=== PATIENT | female | born 1945 | race Caucasian/White ===

== ENCOUNTER → 2019-06-02 10:00 | Outpatient (BNVA) | payer MEDICARE, OTHER, SELFPAY | PROVIDERS: Family Provider Registered Nurse; PCP Registered Nurse; Visit Provider Urology | DX: N30.80 Other cystitis without hematuria (principal); N36.9 Urethral disorder, unspecified | CPT/HCPCS: 81001 ==

== ENCOUNTER 2019-06-12 11:05 | Day surgery (SDC) | payer MEDICARE, OTHER, SELFPAY ==
[2019-06-11 10:29] VITALS: BMI 33.5
--- NOTE | 2019-06-11 10:33 | ECG_ITS ---
Measurements Intervals [place] Rate: 63 P: 48 ND: 193 QRS: 11 QRSD: 83 T: 33 QT: 392 QTc: 403 SINUS RHYTHM POSSIBLE LEFT ATRIAL ENLARGEMENT [-0.1mV P WAVE IN V1/V2] No previous ECG available for comparison Electronically Signed On 06-11-2019 20:59:42 [employer]ED [employer] by Kaden Torres M.D. [id number]
--- NOTE | 2019-06-11 11:04 | ANES.PREANE2 ---
Pre-Anesthetic Assessment Pre-Anesthetic Assessment: Height/Weight: Height 1.6 m Weight 85.729 kg Preop Diagnosis: Suspicious urethral meatal lesion Proposed Procedure: Operation Date: 06/12/19 13:00 Proposed Procedures p BIOPSY OF URETERAL MEATAL LESION 81832/N36.9(Not Applicable) - Edward Regan MD Exam: Pre-Anes Outpt Exam: alert, oriented x 3, clear to auscultation bilaterally and regular rate & rhythm Airway: Submandibular: WNL Cervical ROM: WNL MP: 1 CV/HEM: CV/HEM: HTN Comments: rx'd 15y 2 blocks/2FOS without angina/WONG : Comments: urethral lesion GI: GI: GERD Neuropsych: Neuropsych: PARKER Anesthetic Plan: ASA status: 2 Anesthesia: General PFSH Anesthesia PFSH: Social History Smoking and tobacco status: never smoked Alcohol intake: never Adopted: No Caregiver/support person: No Lives independently: No Household members: spouse Marital status: Current occupational status: retired Data Anesthesia Cardiac Studies: No Data to Display
[2019-06-12] VITALS (7 sets, daily range): BP systolic 140–164; BP diastolic 66–85; PULSE 72–94; RESP 16–20; TEMP 36.4–37.2; O2SAT 95–100
[2019-06-12] MEDS: sodium chloride 0.9% 1,000 ML 30 ML IV (11:33)
[2019-06-12 12:54] LABS: Anion Gap 16.1 (5-19); Blood Urea Nitrogen 20 mg/dL (8-23); Calcium 9.6 mg/dL (8.5-10.5); Carbon Dioxide 25 mmol/L (22-29); Chloride 102 mmol/L (98-107); Creatinine Clr Calc Pharmacy 64.9898; Glucose 95 mg/dL (65-115); Osmolality Calculated 284 mOsm/kg (285-295); Potassium 4.1 mmol/L (3.5-5.1); Sodium 139 mmol/L (136-145)
--- NOTE | 2019-06-12 13:06 | PM.HPUD ---
H&P update H&P Update: DATE OF SURGERY/PROCEDURE: 06/12/19 DATE H&P PERFORMED: 06/02/19 CHANGES TO PREVIOUS DOCUMENTATION: none PREOP DIAGNOSIS: Suspicious urethral meatal lesion PRIMARY INDICATION FOR PROCEDURE: Obtain sample for assessment of risk PLANNED PROCEDURE: Operation Date: 06/12/19 13:00 Proposed Procedures p BIOPSY OF URETERAL MEATAL LESION 08022/N36.9(Not Applicable) - Edward Regan MD Full H&P Medications/Allergies: Current Medications: Current Medications Generic Name Dose Route Start Last Admin Trade Name Freq PRN Reason Stop Dose Admin Sodium Chloride 1,000 mls @ 30 ml s/hr 06/12/19 11:15 06/12/19 11:33 Sodium Chloride 0.9% IV 06/13/19 11:14 30 mls/hr .Q24H EFE Administration Perinent History: Medical/Surgical History: Medical History (Updated 06/02/19 @ 10:50 by Lydia Whaley APRN) Cystitis cystica Hypertension Urethral lesion Family History: Family History (Updated 06/02/19 @ 08:34 by BEBETO Fajardo) Other Cancer Dementia Hypertension Social History: Social History Smoking and tobacco status: never smoked Alcohol intake: never Adopted: No Caregiver/support person: No Lives independently: No Household members: spouse Marital status: Current occupational status: retired
[2019-06-12] MEDS: levofloxacin-dextrose 5 % 500 MG/100 ML PREMIX 100 MG IV (13:10)
--- NOTE | 2019-06-12 13:55 | P.OP_ITS ---
Operative Report Date of procedure: June 12, 2019 Pre-op Diagnosis: Suspicious urethral meatal lesion Post-op diagnosis: same Procedure Done: Excision of urethral meatal lesion Pathology: Urethral meatal lesion Surgeon: Shereen Anesthesia: General Estimated blood loss: Less than 3 cc Urine output: Not measured Complications: None Findings: Lesion confined to the distal urethra at the 6 o'clock position. More pale than typical urethral carbuncle. No obvious deep involvement. Excised without difficulty and good functional and cosmetic closure. Condition: stable Disposition: PACU Brief History: Initially evaluated in February 2019 for urethral lesion. No pain, no active bleeding. Cystoscopy at that time showed no obvious intravesical abnormality or proximal urethral involvement. She was treated initially conservatively with expectation that this was just a caruncle. On follow-up she continued to have the relatively abnormal appearance primarily related to the paleness of this structure as opposed to the typical caruncle. Based on the persistence of this appearance it was elected to proceed with excision. Procedure: After routine preoperative evaluation examination and obtaining of informed consent she was taken to the operating suite on 06/12/2019 where general anesthesia was administered without difficulty after appropriate timeout was performed, SCDs confirmed to be functioning, preoperative antibiotics administered, beta-sahil protocol confirmed. Prepped and draped in usual sterile fashion in dorsolithotomy position pain careful attention to avoiding pressure points. 21 [place] cystoscope with 30 degree lens introduced into the urethral meatus and advanced into the bladder videoscopy. Bladder was systematically examined and showed no gross abnormalities. The urethral lesion at the meatus did not appear to extend deep into the urethral lumen. An incision was made just below the lesion in a semicircular fashion to about the 4:00 and the 8 o'clock position. Stay sutures were placed in the corners of the incision. A transverse incision was made just inside the lesion connecting the 2 corners of the incision. The lesion was excised. Pinpoint electrocautery was utilized for meticulous hemostasis. The wound was closed with running 3-[address] [place] red rubber catheter was easily advanced into the bladder through the urethral meatus. She tolerated the procedure well without complications and was awakened in the operating room and returned to recovery room in stable condition. PLANS: 1. Call for pathology report if she is not heard from us within a week. 2. Recheck in about 2 months or sooner if any concerns or questions
== END 2019-06-12 15:40 | disposition home or self-care (01) ==
PROVIDERS: Anesthesiology; Family Provider Registered Nurse; PCP Registered Nurse; Visit Provider Urology
PROC: (CPT 52300; principal; 2019-06-12 13:00)
PROC: 0TJB8ZZ Inspection of Bladder, Via Natural or Artificial Opening Endoscopic (ICD-10-PCS; CPT 52000; 2019-06-12 13:00)
DX: N36.8 Other specified disorders of urethra (principal); I10 Essential (primary) hypertension; Z82.49 Family history of ischemic heart disease and other diseases of the circulatory system
CPT/HCPCS: 52300; 12345; 36415; 80048; 88305; 93005; J1956; J2405; J2704; J2710; J3010; J3490; J7030

== ENCOUNTER → 2019-10-15 16:23 | Outpatient (BNVA) | payer MEDICARE, OTHER, SELFPAY | PROVIDERS: Family Provider Registered Nurse; PCP Registered Nurse; Visit Provider Registered Nurse | DX: R51 Headache (principal) | CPT/HCPCS: 81000 ==

== ENCOUNTER → 2020-01-21 14:02 | Outpatient (BNVA) | payer MEDICARE, OTHER, SELFPAY | PROVIDERS: Family Provider Registered Nurse; PCP Registered Nurse; Visit Provider Urology | DX: N30.80 Other cystitis without hematuria (principal) | CPT/HCPCS: 81001 ==

== ENCOUNTER 2020-03-01 10:16 | Outpatient (CLI) | payer MEDICARE, OTHER, SELFPAY ==
--- NOTE | 2020-03-01 14:31 | XRR_ITS ---
PROCEDURE INFORMATION: Exam: XR Cervical Spine, 2 or 3 Views Exam date and time: 03/01/2020 2:31 PM Age: 74 years old Clinical indication: Patient HX: Neck pain x 3 weeks; Additional info: Cervical pain TECHNIQUE: Imaging protocol: XR of the cervical spine, 2 or 3 views. COMPARISON: CT neck w con* [id number] 03/28/2018 9:01 AM FINDINGS: Bones/joints: No acute fracture evident. 2 mm of mild anterolisthesis C3 on C4, C5 on C6 and C7 on T1, chronic. C4 through C7 degenerative disc disease with disc space narrowing and vertebral body overgrowth/spurring, chronic. Soft tissues: Unremarkable. XR/XR cervical spine 3V* [id number] IMPRESSION: 2 mm of mild anterolisthesis C3 on C4, C5 on C6 and C7 on T1, chronic. C4 through C7 degenerative disc disease with disc space narrowing and vertebral body overgrowth/spurring, chronic.
--- NOTE | 2020-03-01 14:31 | XRR_ITS ---
PROCEDURE INFORMATION: Exam: XR Right Shoulder Exam date and time: 03/01/2020 2:31 PM Age: 74 years old Clinical indication: Pain; Shoulder; Right; Additional info: Acute right shoulder pain x 2 weeks TECHNIQUE: Imaging protocol: XR Right shoulder. Views: 2 or more views. COMPARISON: No relevant prior studies available. FINDINGS: Bones/joints: No fracture or dislocation evident. Mild AC joint bony overgrowth, chronic. Soft tissues: Normal. XR/XR shoulder RT min 2V* [id number] IMPRESSION: Mild degenerative changes.
== END 2020-03-01 10:17 | disposition home or self-care (01) ==
LOC: RAD 10:22
PROVIDERS: PCP Registered Nurse; Visit Provider Registered Nurse
DX: M25.511 Pain in right shoulder (principal); M54.12 Radiculopathy, cervical region; M50.323 Other cervical disc degeneration at C6-C7 level
CPT/HCPCS: 72040; 73030

== ENCOUNTER → 2020-04-21 14:18 | Outpatient (BNVA) | payer MEDICARE, OTHER, SELFPAY | PROVIDERS: PCP Registered Nurse; Visit Provider Urology | DX: N30.80 Other cystitis without hematuria (principal) | CPT/HCPCS: 81003 ==

== ENCOUNTER → 2020-07-20 15:28 | Outpatient (BNVA) | payer MEDICARE, OTHER, SELFPAY | PROVIDERS: PCP Registered Nurse; Visit Provider Registered Nurse | DX: E04.9 Nontoxic goiter, unspecified (principal); E55.9 Vitamin D deficiency, unspecified; I10 Essential (primary) hypertension; E53.8 Deficiency of other specified B group vitamins; R60.0 Localized edema | CPT/HCPCS: 80053; 81000; 82306; 82607; 84443; 85025 ==

== ENCOUNTER 2020-08-02 11:44 | Outpatient (CLI) | payer MEDICARE, OTHER, SELFPAY ==
[2020-08-02 13:18] LABS: Erythrocyte Sedimentation Rate 15 mm/hr (0-15)
== END 2020-08-02 11:45 | disposition home or self-care (01) ==
PROVIDERS: PCP Registered Nurse; Visit Provider Specialist
DX: H92.03 Otalgia, bilateral (principal)
CPT/HCPCS: 36415; 85651

== ENCOUNTER 2020-08-06 15:04 | Outpatient (CLI) | payer MEDICARE, OTHER, SELFPAY ==
--- NOTE | 2020-08-06 15:14 | CT_ITS ---
WS: [id number] CT scan of the neck. Additional two-dimensional coronal and sagittal reconstruction was performed. 08/06/2020 Clinical Data: OTALGIA Comparison: CT neck, 03/28/2018. DLP: 2666.28 mGy-cm All CT scans at [facility] use at least one of these dose optimization techniques: automat ed exposure control; mA and/or kV adjustment per patient size (includes targeted exams where dose is matched to clinical indication); or iterative reconstruction. Findings: No lymphadenopathy is noted. The salivary glands are unremarkable. There is no prevertebral soft tiss ue swelling. The larynx is symmetric. The thyroid gland shows normal enhancement and there is enlarge ment of the isthmus with low density lesions unchanged.. The floor of the mouth and parapharyngeal sp aces are normal. The oral cavity is unremarkable. The carotid arteries bifurcate normally. There is minimal calcification at the right carotid bifurcat ion. The vertebral arteries are normal. 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 The lung apices show no abnormalities. The portions of the int racranial circulation which are seen demonstrate no abnormalities. No erosion of the skull or skull b ase is seen. CT/CT neck w con* [id number] Impression: 1. No change in multinodular goiter 2. Negative soft tissue neck.
[2020-08-06] MEDS: iohexol 300 mg/mL 100 mL Btl IV (15:36)
== END 2020-08-06 15:05 | disposition home or self-care (01) ==
PROVIDERS: PCP Registered Nurse; Visit Provider Specialist
DX: H92.03 Otalgia, bilateral (principal)
CPT/HCPCS: 70491; Q9967

== ENCOUNTER 2020-08-13 13:04 | Outpatient (CLI) | payer MEDICARE, OTHER, SELFPAY ==
--- NOTE | 2020-08-13 14:15 | USCV_ITS ---
Elise Salomon Age: 75 Gender: F : 1945 Exam Date: 08/13/2020 13:24 Ordering Phys: Taylor PhillipsP VP MARKETING Technologist: Fela Mckeon Exam Location: [facility] [place] Indication: LOCALIZED EDEMA BP: 145 / 59 HR: 70 Rhythm: Sinus Technical Quality: Adequate MEASUREMENTS (Male / Female) Normal Values 2D ECHO LV Diastolic Diameter PLAX 3.0 cm 4.2 - 5.9 / 3.9 - 5.3 cm LV Systolic Diameter PLAX 2.6 cm LV Chamber Size 3.1 cm IVS Diastolic Thickness 1.6 cm 0.6 - 1.0 / 0.6 - 0.9 cm IVS Systolic Thickness 1.6 cm LVPW Diastolic Thickness 1.8 cm 0.6 - 1.0 / 0.6 - 0.9 cm LVPW Systolic Thickness 1.8 cm RV Chamber Size 3.4 cm LVOT Diameter 2.0 cm LV Ejection Fraction 2D Teich 27.9 % LV Ejection Fraction MOD 2C 70.9 % LV Ejection Fraction 2C AL 71.6 % LA Diameter 4.4 cm LA Width 3.2 cm LA Height 4.0 cm RA Width 2.7 cm RA Height 4.0 cm Aorta at Sinotubular Diameter 2.3 cm M-MODE LV Diastolic Diameter MM 4.2 cm 4.2 - 5.9 / 3.9 - 5.3 cm LV Systolic Diameter MM 1.8 cm LV Ejection Fraction MM Teich 87.0 % IVS Diastolic Thickness MM 1.1 cm 0.6 - 1.0 / 0.6 - 0.9 cm IVS Systolic Thickness MM 1.3 cm LVPW Diastolic Thickness MM 1.2 cm 0.6 - 1.0 / 0.6 - 0.9 cm LVPW Systolic Thickness MM 1.6 cm Aortic Annulus Diameter 2.8 cm LA Ao Ratio MM 1.6 MV E Point Septal Separation 0.4 cm DOPPLER AV Peak Velocity 167.0 cm/s LVOT Peak Velocity 133.7 cm/s AV Area Cont Eq vti 2.5 cm squared AV Area Cont Eq pk 2.5 cm squared MV Area PHT 3.5 cm squared Mitral E to A Ratio 0.8 MV E' Velocity 43.5 cm/s Mitral E to MV E' Ratio 6.7 Mitral E to LV E' Lateral Ratio 7.3 Mitral E to LV E' Septal Ratio 6.3 TR Peak Velocity 273.2 cm/s TR Peak Gradient 29.9 mmHg TR Mean Velocity 232.5 cm/s TR Mean Gradient 24.1 mmHg TR Velocity Time Integral 105.6 cm TV Peak E Velocity 84.0 cm/s Right Atrial Pressure 3.0 mmHg Pulmonary Artery Systolic Pressu 32.9 mmHg PV Peak Velocity 118.0 cm/s RV Acceleration Time 0.1 s RV Ejection Time 0.4 s RV AcT/ET 0.3 FINDINGS Left Ventricle Normal left ventricular size, systolic function and mildly increased wall thickness, with no regional wall motion abnormalities. Left ventricular ejection fraction is estimated at 70 %. Normal diastolic function. Right Ventricle Normal right ventricular size and systolic function. Right ventricular systolic pressure 32.9 mmHg. Right Atrium Normal right atrial size. Left Atrium Normal left atrial size. Mitral Valve Structurally normal mitral valve. No mitral valve stenosis. No mitral valve regurgitation. Aortic Valve Structurally normal trileaflet aortic valve. No aortic valve stenosis. No aortic valve regurgitation. Tricuspid Valve Structurally normal tricuspid valve. Trace tricuspid valve regurgitation. Pulmonic Valve Structurally normal pulmonic valve. No pulmonary valve stenosis. Trace pulmonary valve regurgitation. Pericardium No pericardial effusion. Aorta Normal size aortic root and proximal ascending aorta. CONCLUSIONS 1. Normal left ventricular size, systolic function and mildly increased wall thickness, with no regional wall motion abnormalities. Left ventricular ejection fraction is estimated at 70 %. Normal diastolic function. 2. Normal right ventricular size and systolic function. 3. No significant valvular abnormality. 4. No prior similar studies to compare. Charu Maldonado MD (Electronically Signed) Final Date: 13 August 2020 21:10 S
== END 2020-08-13 13:05 | disposition home or self-care (01) ==
PROVIDERS: PCP Registered Nurse; Visit Provider Registered Nurse
DX: R60.0 Localized edema (principal)
CPT/HCPCS: 93306

== ENCOUNTER → 2021-04-20 14:58 | Outpatient (BNVA) | payer MEDICARE, OTHER, SELFPAY | PROVIDERS: PCP Registered Nurse; Visit Provider Urology | DX: N30.80 Other cystitis without hematuria (principal); N36.9 Urethral disorder, unspecified; N36.2 Urethral caruncle | CPT/HCPCS: 81003 ==

== ENCOUNTER → 2021-04-27 14:45 | Outpatient (BNVA) | payer MEDICARE, OTHER, SELFPAY | PROVIDERS: PCP Registered Nurse; Referring Provider Registered Nurse; Visit Provider Specialist | DX: M17.0 Bilateral primary osteoarthritis of knee (principal) | CPT/HCPCS: 73560; 73565 ==

== ENCOUNTER → 2021-05-19 12:11 | Outpatient (BNVA) | payer MEDICARE, SELFPAY | PROVIDERS: PCP Registered Nurse; Visit Provider Specialist | DX: M17.11 Unilateral primary osteoarthritis, right knee (principal); Z20.822 Contact with and (suspected) exposure to COVID-19 | CPT/HCPCS: 87635 ==

== ENCOUNTER 2021-05-24 18:35 | Observation (INO) | payer MEDICARE, SELFPAY ==
[2021-05-19 13:55] VITALS: BMI 33.3
--- NOTE | 2021-05-19 14:15 | ANES.PREANE2 ---
Pre-Anesthetic Assessment Pre-Anesthetic Assessment: Height/Weight: Height 1.65 m Weight 90.718 kg Preop Diagnosis: Primary arthritis right knee Proposed Procedure: Operation Date: 05/24/21 14:20 Proposed Procedures p Total Knee Arthroplasty 47651, m17.10(Right) - Lucrecia Mayes MD Familial anesthetic complications: None Social: Social History: No alcohol and No tobacco Exam: Pre-Anes Outpt Exam: alert, oriented x 3, clear to auscultation bilaterally and regular rate & rhythm Airway: Cervical ROM: WNL MP: 2 Dentition: Other (missing) CV/HEM: CV/HEM: HTN Metabolic: Metabolic: Thyroid (goiter) Anesthetic Plan: ASA status: 2 Anesthesia: Regional (specify below) (spinal + adductor) Risk of > 500 ml blood loss (7ml/kg in children): No PFSH Anesthesia PFSH: Medical History Bilateral lower extremity edema Cystitis cystica Goiter diffuse Hypertension Mild acid reflux Urethral lesion Surgical History History of carpal tunnel surgery History of melanoma excision History of tonsillectomy Family History Mother , AT AGE 95 Heart failure Father , AT AGE 95 Heart failure Other Cancer Dementia Hypertension Social History Alcohol intake: never Adopted: No Caregiver/support person: No Lives independently: No Household members: spouse Marital status: Current occupational status: retired History of recent travel: No Data Anesthesia Cardiac Studies: Echocardiogram Ultrasound 08/13/20
[2021-05-19 14:28] LABS: Add Urine Microscopic? NO; Charge for UA Resulting for Rev
[2021-05-19 14:43] LABS: Basophils # 0.1 10^3/uL (0.0-0.1); Basophils % 0.7 %; Eosinophils # 0.1 10^3/uL (0.0-0.8); Eosinophils % 1.3 %; Hematocrit 46.1 % (37.0-47.0); Hemoglobin 14.9 g/dL (11.5-15.3); Lymphocytes # 2.2 10^3/uL (0.8-4.8); Mean Corpuscular HGB Conc 32.3 g/dL (30.0-36.0); Mean Corpuscular Hemoglobin 28.3 pg (28.0-34.0); Mean Corpuscular Volume 87.5 fl (81-99); Mean Platelet Volume 10.6 fL (7.4-10.4); Monocytes # 0.5 10^3/uL (0.2-0.9); Monocytes % 7.4 %; Neutrophils # 4.36 10^3/uL (1.8-7.7); Neutrophils % 60.5 %; Nucleated Red Blood Cells % 0 %; Platelet Count 232 10^3/cmm (130-400); Red Blood Count 5.27 10^6/uL (4.1-5.3); Red Cell Distribution Width 14.5 % (12.1-15.1); White Blood Count 7.2 10^3/uL (4.0-10.0)
[2021-05-19 14:58] LABS: Alanine Aminotransferase 31 U/L (0-33); Albumin Level 4.4 g/dL (3.5-5.2); Alkaline Phosphatase 99 IU/L (35-105); Anion Gap 17.8 (5-19); Aspartate Amino Transferase 26 U/L (0-32); Blood Urea Nitrogen 20 mg/dL (8-23); Calcium 8.7 mg/dL (8.5-10.5); Carbon Dioxide 22 mmol/L (22-29); Chloride 103 mmol/L (98-107); Globulin 2.4 g/dL (1.3-4.6); Glucose 131 mg/dL (65-115); Osmolality Calculated 292 mOsm/kg (285-295); Potassium 3.8 mmol/L (3.5-5.1); Sodium 139 mmol/L (136-145); Total Bilirubin 0.3 mg/dL (0.15-1.2); Total Protein 6.8 g/dL (6.6-8.7)
[2021-05-19 14:58] LABS: Bilirubin Urine Neg (Negative); Blood Urine Neg (Negative); Glucose Urine UA Norm (Normal); Ketones Urine Negative (Negative); Leukocyte Esterase Urine Negative (Negative); Nitrate Urine Negative (Negative); Protein Urine Neg (Negative); Urine Appearance Clear (CLEAR); Urine Color Yellow (Yellow); Urobilinogen Urine Norm (Negative); pH Urine 5 (5-7)
[2021-05-24] VITALS (18 sets, daily range): BP systolic 125–200; BP diastolic 58–103; PULSE 63–77; RESP 16–20; TEMP 36.2–36.9; O2SAT 91–97; BMI 33.3
[2021-05-24] MEDS: sodium chloride 0.9% 1,000 ML 30 ML IV (11:10)
[2021-05-24] MEDS: CELEcoxib 200 mg Capsule 400 MG PO (11:11)
[2021-05-24] MEDS: acetaminophen 1,000 MG/100 ML PIGGYBACK 400 MG IV ×2 (11:11→21:25)
--- NOTE | 2021-05-24 12:25 | P.ANESUD_ITS ---
Pre-Anesthetic Update Pre-Anesthetic Assessment: Date of Surgery/Procedure: 05/24/21 Preop Rehana gnosis: Suspicious urethral meatal lesion Proposed Procedure: Operation Date: 05/24/21 14:00 Proposed Procedures p Total Knee Arthroplasty 22954, m17.10(Right) - Lucrecia Mayes MD Any changes to Pre-Anesthetic Assessment?: No Last Intake: Intake Last Liquid Date 05/23/21 Last Liquid Time 22:30 Last Solid Date 05/23/21 Last Solid Time 21:00 Vitals: Temperature 98.0 F 05/24/21 10:27 Temperature Source Temporal Artery S can 05/24/21 10:27 Pulse Rhythm 05/24/21 10:29 Pulse Strength 3+ Normal 05/24/21 10:29 Respiratory Rate 18 05/24/21 10:27 Blood Pressure 193/72 05/24/21 11:09 Blood Pressure Juanis n 112 05/24/21 11:09 Pulse Oximetry 95 05/24/21 10:27 Oxygen Delivery Me thod 05/24/21 10:29 Exam: Pre-Anes Outpt Exam: alert, oriented x 3, clear to auscultation bilaterally and regular rate & rhythm Other Pertinent Information: Other Pertinent Information: Plan SAB with adductor Cardiac Studies: Echocardiogram Ultrasound 08/13/20
[2021-05-24] MEDS: fentaNYL 50 mcg/mL INJ 2mL IVP (13:25)
[2021-05-24] MEDS: vancomycin 1,000 MG in sodium chloride 0.9% 250 ML 250 MG IV (13:52)
--- NOTE | 2021-05-24 14:22 | W.PM.OPSUD ---
Surgery/Procedure H&P Update DATE OF PROCEDURE: May 24, 2021 DATE H&P PERFORMED: 04/27/21 H&P UPDATE INFORMATION: I have reviewed H&P completed within last 30 days, I have examined patient prior to procedure, No changes to prior documentation and [place] [facility] [place] date indicated CHANGES TO PREVIOUS DOCUMENTATION: None PREOP DIAGNOSIS: Right Knee osteoarthritis with Valgus deformity PLANNED PROCEDURE: Operation Date: 05/24/21 14:00 Proposed Procedures p Total Knee Arthroplasty 72197, m17.10(Right) - Lucrecia Mayes MD Related Problem List Diagnoses (1) Primary osteoarthritis of right knee: (2) Valgus deformity, not elsewhere classified, right knee:
--- NOTE | 2021-05-24 14:58 | ANES.PROC ---
Anesthesia Procedures Procedure/Date: 05/24/21 Right adductor nerve block Nerve Block ^: Nerve Block 1: Main Anesthesia: spinal anesthesia block Time Out Performed: Yes Consent: requested by attending/covering physician, from patient, risks and benefits reviewed and patient agrees to proceed Nerve block location: adductor canal (right) Anesthesia monitors applied: pulse oximetry, EKG, BP cuff and oxygen Nerve block position: supine Anesthetic Used: ropivicaine 0.5% Amount of anesthesia used (mL): 20 Ultrasound used to: recognize landmarks Nerve Stimulator Used?: No Interscalene/Femoral BLK: 4 stimuplex 21 g needle used for position and inplane approach and visualize local anesthetic spread Injection: neg aspiration of heme Patient Tolerated Procedure: well Complications: none
[2021-05-24] MEDS: vancomycin 1,000 MG SDV 1000 MG IRRIGATION (15:18)
--- NOTE | 2021-05-24 18:13 | XR_ITS ---
WS: [id number] Right knee, AP and lateral views, 05/24/2021 Clinical Data: Status post total knee arthroplasty Comparison: Bilateral knees, 04/27/2021. Findings: A right knee arthroplasty is in good position. No loosening is seen. There is air in the joint space from the recent surgery. There are no fractures or dislocations. Anterior subcutaneous surgical stapl es are present. XR/XR knee RT 3V* [id number] Impression: Arthroplasty of the right knee
--- NOTE | 2021-05-24 18:14 | ANE.PACU2 ---
Inpatient post-anesthesia follow up: Airway intact: Yes Vital signs: Temperature 98.0 F Pulse Rate Respiratory Rate 18 Blood Pressure 193/72 Pulse Oximetry 97 Oxygen Delivery Me thod Room Air Oxygen Flow Rate Fraction of Inspir ed Oxygen Hydration adequate: Yes Nausea and vomiting: No Pain level: 2 Mental status: Baseline
[2021-05-24] MEDS: meperidine 50 mg/mL INJ 12.5 MG IVP (18:15)
--- NOTE | 2021-05-24 18:19 | PM.OP ---
Operative Report Date of procedure: May 24, 2021 Pre-op diagnosis: Right Knee osteoarthritis with Valgus deformity Post-op diagnosis: same Post-op findings: Severe osteoarthritis with large osteophytes circumferentially about the femur and patella. Procedure done: Right total knee arthroplasty Implants: The [place] total knee system with a size 4 triathlon beaded posterior stabilized femur right, a triathlon titanium tibial component size 5 beaded, a triathlon X3 posterior stabilized tibial bearing insert size 5 X 12 mm and a beaded triathlon titanium asymmetric patella size 32 x 10 mm Specimens removed/disposition: Bone, disposed of Pathology: none sent Surgeon: Lucrecia Mayes Teacher Of The Deaf/Hard Of Hearing: [facility] operating room technicians Anesthesia: MAC (Spinal with preoperative regional block, ASA 2) Estimated blood loss (mL): 50 Tourniquet time (min): 120 At 250 mmHg IV fluids (mL): 1,200 Urine output (mL): 300 Complications: None Findings: Significant valgus deformity with flexion contracture. Large osteophytes circumferentially about the femur. Osteopenic bone. Circumferential peripatellar osteophytes. Condition: stable Disposition: PACU (Then to floor for postoperative rehabilitation and pain management) Brief History: This 76-year-old woman presented to my office with complaints of severe right knee pain which caused her significant difficulties in her activities of daily living. Conservative measures were not successful, and additionally, she had a very severe valgus deformity with significant flexion contracture. After discussion, the plan was made to proceed with right total knee arthroplasty. Questions were answered and consents were signed preoperatively. Procedure: The patient was brought to the operating theater, and after undergoing adequate spinal anesthesia with MAC and with supplemental regional block placed while in the preop area, ASA 2, the right lower extremity was prepped with Dura-Prep and draped in usual fashion following placement of a tourniquet high on the leg. The leg was then draped free. Following prepping and draping, the leg was exsanguinated, and the tourniquet was elevated to 250 mm Hg for a total tourniquet time of 120 minutes.? Prior to elevation of the tourniquet, but following exposure of the site of surgery, a surgical pause was performed. At the time of the surgical pause, we confirmed the site and side of surgery. Additionally, we confirmed the appropriate and timely administration of preoperative antibiotics, vancomycin 1 g and Transexemic acid 1 g. The availability of equipment was confirmed, and the patient's identity was verbalized as well. Following the surgical pause, an incision was made centering over the patella continuing proximally and distally as necessary to allow access to the knee joint. We had to stick tie several large varicose veins during the process of the incision. Dissection continued through skin and soft tissues using a scalpel. Hemostasis was obtained using electrocautery. The skin incision was followed by a median parapatellar arthrotomy. The leg was extended and the patella was everted. Following this, the leg was returned to flexed position.? The distal femur was exposed, and there was such large osteophytes, these had to be removed prior to addressing any further surgical intervention. There were large osteophytes circumferentially about the patella. There were also large osteophytes along both the medial and lateral femur as well as anteriorly in the area of the notch. A drill hole was made in this for placement of the distal femoral jig. The distal femoral jig was set at 5? of valgus. The distal femoral cutting block was then placed in appropriate position, and an radha wing was used to confirm an appropriate amount of distal femur would be resected.? The distal femoral resection was accomplished with 8 mm of bone being resected distally. After the distal femoral resection had been accomplished, the femur was measured and it measured a size 4 anterior posterior direction as well as the medial lateral direction.? A size 4 femoral cutting block was placed in position, and we were then able to accomplish the anterior, posterior and chamfer cuts. This jig was then removed, and the notch guide was placed in position. With the notch guide in appropriate position, the notch was excised including resection of the anterior and posterior cruciate ligaments. This notch was to allow for the posterior stabilized femoral component. At this point, the femur was prepared and attention was directed to the proximal tibia. The posterior knee retractor was placed along with medial and lateral retractors.? Further resection of the menisci was accomplished as we had better visualization. A complete meniscectomy was performed both medially and laterally with care being taken to protect the popliteus. Retractors were then placed so that the proximal tibia was well visualized. A drill hole was then made in the tibia for placement of the intramedullary guide. This guide was placed so that approximately 2 mm of bone would be resected from the lateral tibial plateau, and this resulted in 8 mm resected from the lateral tibial plateau. The intramedullary guide was utilized supplemented with an extramedullary guide to assure appropriate alignment for the proximal tibial resection. The proximal tibial jig was then evaluated, pinned in position, and the proximal tibial resection was accomplished without difficulty. The jig was removed, and the proximal tibia was measured. It measured a size 5. We then attempted a trial reduction with a size 5 by 11 mm insert.? With this, the femoral component was placed in position for the trial reduction, and the knee was placed through range of motion. Further lateral release was accomplished, and we were then able to place a size 5 x 13 mm insert which lacked slight flexion but gave stability. Therefore, we chose to place a size 5 x 12 mm insert. There was excellent stability with excellent varus-valgus alignment with appropriate patellar tracking. Extension was noted to be full as well.? This was felt to be the appropriate size insert. There was full extension and flexion without lift off and the rotation of the tibia was marked. Alignment was checked from the hip to the ankle, and this was noted to be appropriate as well. Attention was then directed to the patella. The patella was measured with a caliper.? We resected sufficient patella to leave approximately 15 mm of patella remaining.? Measurements of the patella then indicated that a size asymmetric 32 mm x 10 mm was the appropriate patellar size. We then placed the jig to drill for the 3 pegs of the press-fit patella, and these drill holes were made without incident. A trial patella was then placed, and the knee was placed through range of motion. The patella was noted to track nicely without evidence of subluxation.? The femur was prepared for a press-fit femur by drilling 2 holes for the femoral pegs.? All trial components were subsequently removed. The tibial tray was then pinned into position, and we broached the tibia for the stem of the tibial component.? Subsequently, 4 drill holes were made for placement of the press-fit tibia.? This was accomplished without difficulty. Care was taken to assure appropriate rotation of the tibia as well as appropriate position on the proximal tibia. The tibial tray was completely seated on the proximal tibia. Following broaching, the tibial guide was removed, and all surfaces were copiously irrigated. The surfaces were then dried and a bone plug was placed into the distal femur.? Exparel was also injected at this point. The Tritanium tibia was impacted into position.? The beaded femur was then impacted into position in a cementless fashion. The tibial insert was placed. The patella was pressed into position with a patellar clamp.? The knee was irrigated with 20 mL of Betadine and 500 mL of normal saline, and this was allowed to remain in the knee for 3-4 minutes.? The knee was then copiously irrigated and suctioned dry.? Attention was then directed to closure.? Closure was accomplished with 0 Vicryl in the fascial tissues.? Following this, a 2-0 Monocryl was used in the subcutaneous tissues, and the skin was closed with skin raul. A sterile dressing was then placed consisting of dermabond Prineo, OpSite, ABD, sterile soft roll, and an Pierre wrap. The patient was returned the Recovery Room in a satisfactory condition.? X-rays were obtained there.? The patient will be discharged to the floor for postoperative rehabilitation and pain management. Related Problem List Diagnoses (1) Primary osteoarthritis of right knee:
--- NOTE | 2021-05-24 19:39 | PC.NURSE ---
ADMIT NOTE Pt received from OR via bed at 1925. Alert and oriented. Denies pain at present. Dressing/casper wrap to RLE. Ice pack in place. Is able to move toes and good cap refill present. Can feel touch to feet. Thirsty and given some water to drink. at bedside
[2021-05-24] MEDS: oxyCODONE 5 mg IR Tab/Cap PO (21:25)
[2021-05-24] MEDS: chlorhexidine gluconate 0.12% Btl 473 mL 30 ML MUCOUS MEM (21:28)
[2021-05-24] MEDS: ondansetron 2 mg/ML SDV 2 mL 4 MG IVP (22:08)
[2021-05-24] MEDS: CELEcoxib 200 mg Capsule PO (23:57)
[2021-05-25] VITALS (12 sets, daily range): BP systolic 128–154; BP diastolic 63–77; PULSE 71–81; RESP 16–18; TEMP 36.3–37.7; O2SAT 90–97
[2021-05-25] MEDS: oxyCODONE 5 mg IR Tab/Cap PO ×5 (02:37→20:40)
[2021-05-25] MEDS: acetaminophen 1,000 MG/100 ML PIGGYBACK 400 MG IV ×2 (04:32→11:35)
[2021-05-25 05:29] LABS: Basophils % 0.4 %; Eosinophils % 0.1 %; Hematocrit 38.4 % (37.0-47.0); Hemoglobin 12.4 g/dL (11.5-15.3); Lymphocytes # 0.6 10^3/uL (0.8-4.8); Lymphocytes % 7.1 %; Mean Corpuscular HGB Conc 32.3 g/dL (30.0-36.0); Mean Corpuscular Hemoglobin 28.7 pg (28.0-34.0); Mean Corpuscular Volume 88.9 fl (81-99); Mean Platelet Volume 10.8 fL (7.4-10.4); Monocytes # 0.7 10^3/uL (0.2-0.9); Monocytes % 8.4 %; Neutrophils # 6.93 10^3/uL (1.8-7.7); Neutrophils % 83.6 %; Nucleated Red Blood Cells % 0 %; Platelet Count 178 10^3/cmm (130-400); Red Blood Count 4.32 10^6/uL (4.1-5.3); Red Cell Distribution Width 14.6 % (12.1-15.1); White Blood Count 8.3 10^3/uL (4.0-10.0)
[2021-05-25 05:51] LABS: Anion Gap 14.5 (5-19); Blood Urea Nitrogen 18 mg/dL (8-23); Calcium 7.8 mg/dL (8.5-10.5); Carbon Dioxide 22 mmol/L (22-29); Chloride 105 mmol/L (98-107); Glucose 100 mg/dL (65-115); Osmolality Calculated 286 mOsm/kg (285-295); Potassium 4.5 mmol/L (3.5-5.1); Sodium 137 mmol/L (136-145)
--- NOTE | 2021-05-25 06:48 | PC.NURSE ---
SHIFT SUMMARY Has not slept much. Says she has just napped off & on. Medicated X3 with po Oxycodone as well as scheduled IV Tylenol for right knee pain. Dressing/casper wrap to right leg. Neurovascular check WNL. Does say she still has some numbness in right foot Toes warm with good cap refill present and moves foot well. Had c/o some nausea X1 and received IV Zofran. No emesis and has been drinking well. Wilian hose and foot pump in place to
[2021-05-25] MEDS: calcium carbonate 500 mg Chew Tablet 1000 MG PO ×2 (09:33→16:44)
[2021-05-25] MEDS: iron polysaccharide complex 150 mg Capsule PO ×2 (09:33→16:52)
[2021-05-25] MEDS: cholecalciferol (vitamin D3) 1,000 unit Tablet 1000 UNIT PO (09:33)
[2021-05-25] MEDS: multivitamin therapeutic Tablet 1 TAB PO (09:33)
[2021-05-25] MEDS: aspirin 325 mg EC Tablet PO (09:34)
[2021-05-25] MEDS: potassium chloride ER 10 mEq Tablet PO (09:34)
[2021-05-25] MEDS: pantoprazole DR 40 mg Tablet PO (09:34)
[2021-05-25] MEDS: FUROsemide 20 mg Tablet 30 MG PO (09:34)
[2021-05-25] MEDS: losartan 50 mg Tablet PO (09:34)
[2021-05-25] MEDS: polyethylene glycol 3350 Pkt 17 gm PO (09:35)
--- NOTE | 2021-05-25 10:09 | PC.CHAP ---
Pastoral Care Encounter/Spiritual Assessment Type of Contact [] Declined top executive visit [] Patient/Family/Request visit [] Outpatient visit [] Follow-up visit [] Physician referral [] Code/Alert [x] Routine visit [] Staff referral [] Actively dying [] Patient sleeping [] Family support [] [] Out of room [] Palliative care [] [] Receiving care in room [] Pre-surgical visit [] Trauma [] Long length of stay [] ICU visit [] Other: Relational/Emotional Strength [x] Patient feels connected with others/family/visitors/staff [] Distress [] Loneliness/isolation [] Abandonment Spirituality of Patient [x] Person of Laurel [x] Attends Mu-Ism of their Laurel [x] Believes in Prayer [] Reads Bible or Tenriism materials [] There are Spiritual issues to be addressed Powerhouse Mechanic Apprentice Interventions [x] Prayer [x] Active listening [x] Non-anxious presence [x] Spiritual/emotional support [] Crisis/trauma care [] Spiritual counseling [] Bereavement support [] Provided bereavement packet [] Provided Bible/devotional materials [] Provided toy/stuffed animal, coloring book to patient or family member [] Provided Communion [] Anointing/[place] [] Salvation [x] Completed spiritual assessment [] Other: Impact on Illness or Injury [] Angry [] Fearful [] Anxious [] Often cries [] Exhaustion [] Unable to work [] Unable to attend episcopal [] Unable to walk/stand [] Unable to read [] Unable to drive [] Unable to eat/drink [] Unable to sleep [] Unable to be with family [] Patient intubated [] Other: Summary patient having some pain Time spent with patient 10 min
[2021-05-25] MEDS: CELEcoxib 200 mg Capsule PO ×2 (11:35→23:24)
--- NOTE | 2021-05-25 13:25 | PM.PN ---
Subjective Subjective: Interval history: The patient had severe flexion contracture and valgus deformity preoperatively. Secondary to an increased level of pain with the releases required to repair her knee, she is having difficulty with physical therapy and difficulty with ambulating. The patient will require ongoing hospitalization and work with physical therapy to address this issue. Medications: Reviewed: Yes Vitals/I&O/Wt Last Vital Signs Temp 97.8 F 05/25/21 15:58 Pulse 71 05/25/21 15:58 Resp 16 05/25/21 16:00 BP 152/77 05/25/21 15:58 Pulse Ox 95 05/25/21 16:00 05/25/21 05/25/21 05/25/21 06:59 14:59 22:59 Intake Total 1560 / 2340 350 / 350 Output Total 900 / 1550 Balance 660 / 790 350 / 350 Weight last 48 hrs Weight 200 lb Physical Exam Const: COMMON NORMALS: no acute distress, average body habitus, patient oriented x3 and alert GENERAL APPEARANCE: cooperative and comfortable ORIENTATION/CONSCIOUSNESS: Yes awake HENMT: COMMON NORMALS: normocephalic and atraumatic HEAD & SCALP: normocephalic and atraumatic Eye: GENERAL EYE: appearance normal, both eyes and all related structures Chest: COMMONS NORMALS: normal inspection of the chest Resp: COMMON NORMALS: normal respiratory effort EFFORT & INSPECTION: Yes able to speak in complete sentences and Yes symmetric chest movement Extremity: RIGHT LOWER EXTREMITY: Yes knee joint (Pierre wrap is removed. No significant swelling.) Right knee: Yes inspection (OpSite dressing is dry and intact.), Yes palpation (Tenderness to palpation.), Yes ROM (Patient is uncomfortable with range of motion, but working with therapy.) and Yes neurovascular exam (Intact distally.) Neuro: COMMON NORMALS: patient oriented x3 SENSORIUM/ORIENTATION: Yes alert Psych: COMMON NORMALS: mental status grossly normal APPEARANCE: Yes grossly normal ATTITUDE: Yes calm and Yes engaged ATTENTION/CONCENTRATION: Yes attention grossly intact Skin: COMMON NORMALS: no rashes or lesions noted GENERAL SKIN EXAM: no rashes or lesions noted Urinary Catheter Management: Cardenas: Cath Placed During This Visit: yes, but has since been removed by the nurse Reason for Continuing Indwelling Catheter: Decision to DC Catheter Urinary Catheter Date of Insertion: 05/24/21 Urinary Catheter Time of Insertion: 15:10 Date Urinary Catheter Removed: 05/25/21 Time Urinary Catheter Discontinued: 09:45 Data : 05/25/21 04:13 05/25/21 04:13 A&P Assessment and plan (1) Status post total right knee replacement not using cement: Patient underwent right total knee arthroplasty yesterday. Preoperatively, she had significant valgus deformity and flexion contracture. This was not correctable even under anesthetic. Extensive release was required, and the patient has significant pain associated with these releases. She is requiring ongoing hospitalization for physical therapy and for ambulation to allow her to be safe at home. Currently, she has pain limitations not allowing her to aggressively perform with physical therapy. There were no complications from the surgical procedure, however. Status: Acute (2) Primary osteoarthritis of right knee: Status: Acute (3) Valgus deformity, not elsewhere classified, right knee: Status: Acute Attestations Medical Necessity Statement*: Patient requires ongoing hospitalization secondary to inability to ambulate independently and safely following complex right total knee arthroplasty. 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
[2021-05-25] MEDS: chlorhexidine gluconate 0.12% Btl 473 mL 30 ML MUCOUS MEM ×3 (13:58→20:39)
[2021-05-25] MEDS: vancomycin 1,000 MG in sodium chloride 0.9% 250 ML 250 MG IV (13:58)
[2021-05-25] MEDS: mupirocin oint 22 gm 1 APPLIC NASAL (16:47)
[2021-05-25] MEDS: sennosides-docusate Tablet 2 TAB PO (16:52)
[2021-05-25] MEDS: acetaminophen 500 mg Tablet 1000 MG PO (17:51)
[2021-05-26] VITALS (7 sets, daily range): BP systolic 120–159; BP diastolic 71–76; PULSE 71–82; RESP 17–18; TEMP 36.1–37.3; O2SAT 90–96
[2021-05-26] MEDS: acetaminophen 500 mg Tablet 1000 MG PO ×2 (04:35→13:43)
--- NOTE | 2021-05-26 06:00 | PC.NURSE ---
SHIFT SUMMARY Has done very well tonight. Took po pain med at HS and only po Tylenol rest of night. Wants to take something before therapy today. Getting up with one assist and walker. Right knee incision with telfa dressing intact. Ice packs to knee. Edema/bruising to right leg. Bruising is primarily at knee anteriorly and posteriorly. Says she should be going home today
[2021-05-26] MEDS: cholecalciferol (vitamin D3) 1,000 unit Tablet 1000 UNIT PO (08:39)
[2021-05-26] MEDS: potassium chloride ER 10 mEq Tablet PO (08:39)
[2021-05-26] MEDS: aspirin 325 mg EC Tablet PO (08:39)
[2021-05-26] MEDS: losartan 50 mg Tablet PO (08:39)
[2021-05-26] MEDS: oxyCODONE 5 mg IR Tab/Cap PO (08:39)
[2021-05-26] MEDS: calcium carbonate 500 mg Chew Tablet 1000 MG PO (08:39)
[2021-05-26] MEDS: sennosides-docusate Tablet 2 TAB PO (08:39)
[2021-05-26] MEDS: pantoprazole DR 40 mg Tablet PO (08:39)
[2021-05-26] MEDS: multivitamin therapeutic Tablet 1 TAB PO (08:39)
[2021-05-26] MEDS: iron polysaccharide complex 150 mg Capsule PO (08:39)
[2021-05-26] MEDS: FUROsemide 20 mg Tablet 30 MG PO (08:40)
[2021-05-26] MEDS: fluticasone nasal spray 16gm Btl 1 SPRAY INTRANASAL (08:42)
[2021-05-26] MEDS: mupirocin oint 22 gm 1 APPLIC NASAL (08:47)
[2021-05-26] MEDS: chlorhexidine gluconate 0.12% Btl 473 mL 30 ML MUCOUS MEM ×2 (08:47→13:45)
[2021-05-26] MEDS: polyethylene glycol 3350 Pkt 17 gm PO (08:48)
--- NOTE | 2021-05-26 10:29 | PC.OT ---
OT NOTE: OT TREATMENT ATTEMPTED; PATIENT JUST FINISHING WITH P.T. PATIENT REPORTS THAT SHE WAS ABLE TO DON UNDERWEAR WITH MODIFIED INDEPENDENCE TODAY AND IS ABLE TO DEMONSTRATE REACHING TO VOLAR SURFACE OF FOOT. REPORTS THAT SHE DRESSED THE RIGHT LE FIRST. REPORTS THAT SHE HAS BEEN ABLE TO TOILET SELF USING BSC WITH INDEPENDENCE. PATIENT DECLINES ADLS AT THIS TIME. MAY DISCHARGE LATER TODAY. WILL ATTEMPT TREATMENT AGAIN TOMORROW IF PATIENT STILL ADMITTED TO DETERMINE FURTHER SKILLED OT NEEDS.
--- NOTE | 2021-05-26 13:17 | PC.CHAP ---
Pastoral Care Encounter/Spiritual Assessment Type of Contact [] Declined seo expert visit [] Patient/Family/Request visit [] Outpatient visit [] Follow-up visit [] Physician referral [] Code/Alert [x] Routine visit [] Staff referral [] Actively dying [] Patient sleeping [] Family support [] [] Out of room [] Palliative care [] [x] Receiving care in room [] Pre-surgical visit [] Trauma [] Long length of stay [] ICU visit [] Other: Relational/Emotional Strength [x] Patient feels connected with others/family/visitors/staff [] Distress [] Loneliness/isolation [] Abandonment Spirituality of Patient [x] Person of Laurel [] Attends Mandaen of their [place] [x] Believes in Prayer [] Reads Bible or Jew materials [] There are Spiritual issues to be addressed Tile Professional Interventions [x] Prayer [x] Active listening [x] Non-anxious presence [x] Spiritual/emotional support [] Crisis/trauma care [x] Spiritual counseling [] Bereavement support [] Provided bereavement packet [] Provided Bible/devotional materials [] Provided toy/stuffed animal, coloring book to patient or family member [] Provided Communion [] Anointing/[place] [] Salvation [x] Completed spiritual assessment [] Other: Impact on Illness or Injury [] Angry [] Fearful [x] Anxious [] Often cries [] Exhaustion [] Unable to work [] Unable to attend yarsanism [] Unable to walk/stand [] Unable to read [] Unable to drive [] Unable to eat/drink [] Unable to sleep [] Unable to be with family [] Patient intubated [] Other: Summary had surgery on back in some pain will be recover at home has a good attitude and is going home Time spent with patient 5 mins
[2021-05-26] MEDS: CELEcoxib 200 mg Capsule PO (13:44)
--- NOTE | 2021-05-26 15:01 | PM.DCS ---
Discharge Providers Date of Admission: 05/24/21 18:35 Date of Discharge: May 26, 2021 Attending Provider at Admission: Lucrecia Mayes MD Attending Provider at Discharge: Lucrecia Mayes MD Primary Care Provider: SULEMAN Thompson Diagnoses at Discharge Discharge Diagnosis (1) Status post total right knee replacement not using cement: Status: Acute Permanent problem details: Date of procedure: May 24, 2021 Procedure done: Right total knee arthroplasty Implants: The Rosina total knee system with a size 4 triathlon beaded posterior stabilized femur right, a triathlon titanium tibial component size 5 beaded, a triathlon X3 posterior stabilized tibial bearing insert size 5 X 12 mm and a beaded triathlon titanium asymmetric patella size 32 x 10 mm (2) Primary osteoarthritis of right knee: Status: Acute (3) Valgus deformity, not elsewhere classified, right knee: Status: Acute Reason for Visit Reason for Visit: osteoarthritis right knee Brief History: This 76-year-old woman presented to my office with complaints of severe right knee pain which caused her significant difficulties in her activities of daily living.? Conservative measures were not successful, and additionally, she had a very severe valgus deformity with significant flexion contracture.? After discussion, the plan was made to proceed with right total knee arthroplasty.? Questions were answered and consents were signed preoperatively. Hospital Course Hospital Course Patient came for same-day total knee arthroplasty to the right knee. She underwent this procedure uneventfully. She did have significant valgus deformity and significant flexion contracture which required extensive releases. On the first postoperative day, she was having difficulty ambulating and getting up and being independent safely. Therefore, the patient was maintained in hospital for an additional night so that she could have additional physical therapy. She is seen on the second postoperative day. Her leg is bruised but remains benign. The ecchymosis is consistent with the degree of releases. There is no evidence of DVT. There is no evidence of infection. Physical Exam Const: COMMON NORMALS: no acute distress, average body habitus, patient oriented x3 and alert GENERAL APPEARANCE: cooperative and comfortable ORIENTATION/CONSCIOUSNESS: Yes awake HENMT: COMMON NORMALS: normocephalic and atraumatic HEAD & SCALP: normocephalic and atraumatic Eye: GENERAL EYE: appearance normal, both eyes and all related structures Chest: COMMONS NORMALS: normal inspection of the chest Resp: COMMON NORMALS: normal respiratory effort EFFORT & INSPECTION: Yes able to speak in complete sentences and Yes symmetric chest movement Extremity: RIGHT LOWER EXTREMITY: Yes knee joint (Dressing is dry and intact.) Right knee: Yes inspection (Ecchymosis as anticipated. ), Yes palpation (Some tenderness to palpation. ), Yes neurovascular exam (Intact distally) and Yes other (Unable to independently straight leg raise, dorsiflexion intact) Neuro: COMMON NORMALS: patient oriented x3 SENSORIUM/ORIENTATION: Yes alert Psych: COMMON NORMALS: mental status grossly normal APPEARANCE: Yes grossly normal ATTITUDE: Yes calm and Yes engaged ATTENTION/CONCENTRATION: Yes attention grossly intact Skin: COMMON NORMALS: no rashes or lesions noted GENERAL SKIN EXAM: no rashes or lesions noted Urinary Catheter Management: Cardenas: Cath Placed During This Visit: yes, but has since been removed by the nurse Reason for Continuing Indwelling Catheter: Decision to DC Catheter Urinary Catheter Date of Insertion: 05/24/21 Urinary Catheter Time of Insertion: 15:10 Date Urinary Catheter Removed: 05/25/21 Time Urinary Catheter Discontinued: 09:45 Discharge Data Studies Completed and Pending Completed Studies During Hospitalization Category Date Time Status XR knee RT 3V* [id number] Urgent Exams 05/24/21 18:13 Completed Radiology Impressions Knee X-Ray 05/24/21 18:13 Impression: Arthroplasty of the right knee Laboratory Results WBC 8.3 10^3/uL (4.0-10.0) 05/25/21 04:13 RBC 4.32 10^6/uL (4.1-5.3) 05/25/21 04:13 Hgb 12.4 g/dL (11.5-15.3) 05/25/21 04:13 Hct 38.4 % (37.0-47.0) 05/25/21 04:13 MCV 88.9 fl (81-99) 05/25/21 04:13 MCH 28.7 pg (28.0-34.0) 05/25/21 04:13 MCHC 32.3 g/dL (30.0-36.0) 05/25/21 04:13 RDW 14.6 % (12.1-15.1) 05/25/21 04:13 Plt Count 178 10^3/cmm (130-400) 05/25/21 04:13 MPV 10.8 fL (7.4-10.4) H 05/25/21 04:13 Neut % (Auto) 83.6 % 05/25/21 04:13 Lymph % (Auto) 7.1 % 05/25/21 04:13 Pinal % (Auto) 8.4 % 05/25/21 04:13 Eos % (Auto) 0.1 % 05/25/21 04:13 Baso % (Auto) 0.4 % 05/25/21 04:13 Neut # (Auto) 6.93 10^3/uL (1.8-7.7) 05/25/21 04:13 Lymph # (Auto) 0.6 10^3/uL (0.8-4.8) L 05/25/21 04:13 Pinal # (Auto) 0.7 10^3/uL (0.2-0.9) 05/25/21 04:13 Eos # (Auto) 0.0 10^3/uL (0.0-0.8) 05/25/21 04:13 Baso # (Auto) 0.0 10^3/uL (0.0-0.1) 05/25/21 04:13 Nucleated RBC % (auto) 0 % 05/25/21 04:13 Nucleated RBCs # 0.0 /100WBC 05/25/21 04:13 Sodium 137 mmol/L (136-145) 05/25/21 04:13 Potassium 4.5 mmol/L (3.5-5.1) 05/25/21 04:13 Chloride 105 mmol/L (98-107) 05/25/21 04:13 Carbon Dioxide 22 mmol/L (22-29) 05/25/21 04:13 Anion Gap 14.5 (5-19) 05/25/21 04:13 BUN 18 mg/dL (8-23) 05/25/21 04:13 Creatinine 0.6 mg/dL (0.5-0.9) 05/25/21 04:13 GFR Calculation Not Reportable 05/25/21 04:13 Glucose 100 mg/dL (65-115) 05/25/21 04:13 Calculated Osmolality 286 mOsm/kg (285-295) 05/25/21 04:13 Calcium 7.8 mg/dL (8.5-10.5) L 05/25/21 04:13 Total Bilirubin 0.3 mg/dL (0.15-1.2) 05/19/21 14:00 AST 26 U/L (0-32) 05/19/21 14:00 ALT 31 U/L (0-33) 05/19/21 14:00 Alkaline Phosphatase 99 IU/L (35-105) 05/19/21 14:00 Total Protein 6.8 g/dL (6.6-8.7) 05/19/21 14:00 Albumin 4.4 g/dL (3.5-5.2) 05/19/21 14:00 Globulin 2.4 g/dL (1.3-4.6) 05/19/21 14:00 Urine Color Yellow (Yellow) 05/19/21 14:20 Urine Appearance Clear (CLEAR) 05/19/21 14:20 Urine pH 5 (5-7) 05/19/21 14:20 Ur Specific Holloway 1.010 (1.005-1.030) 05/19/21 14:20 Urine Protein Neg (Negative) 05/19/21 14:20 Urine Glucose (UA) Norm (Normal) 05/19/21 14:20 Urine Ketones Negative (Negative) 05/19/21 14:20 Urine Blood Neg (Negative) 05/19/21 14:20 Urine Nitrate Negative (Negative) 05/19/21 14:20 Urine Bilirubin Neg (Negative) 05/19/21 14:20 Urine Urobilinogen Norm mg/dL (Negative) 05/19/21 14:20 Ur Leukocyte Esterase Negative (Negative) 05/19/21 14:20 Procedures Performed Total knee arthroplasty Vitals Last Vital Signs Temp 98.2 F 05/26/21 12:00 Pulse 74 05/26/21 12:00 Resp 18 05/26/21 12:00 BP 132/72 05/26/21 12:00 Pulse Ox 95 05/26/21 12:00 Discharge Plan Discharge Patient Disposition: Home Health Service Condition: Stable Prescriptions: New oxycodone 5 mg Tablet 5 mg PO Q4H PRN (Reason: Moderate Pain) 7 Days Qty: 30 0RF acetaminophen 500 mg Tablet 1,000 mg PO Q8H 15 Days Qty: 90 0RF aspirin 325 mg Tablet,Delayed Release (Dr/Ec) 325 mg PO DAILY 30 Days Qty: 30 0RF celecoxib 200 mg Capsule 200 mg PO Q12H Qty: 60 0RF Continued magnesium oxide 400 mg magnesium capsule 400 mg PO BEDTIME 0RF melatonin 10 mg capsule 10 mg PO BEDTIME 0RF ascorbic acid (vitamin C) 500 mg capsule 1,000 mg PO ONCE 0RF hpjbsefjkhec-Xx-extm-minerals 18-0.4 mg tablet 1 tab PO DAILY 0RF cranberry extract-vitamin C 250-60 mg capsule 1 cap PO DAILY 0RF turmeric-turmeric ext-pepper 900-100-5 mg capsule 1 cap PO BEDTIME 0RF fluticasone propionate [Allergy Relief (fluticasone)] 50 mcg/actuation spray,suspension 1 spray INTRANASAL DAILY 0RF ipratropium bromide 0.03 % spray,non-aerosol 2 spray INTRANASAL DAILY 0RF TheraTears 0.25 % dropperette 1 drop ophthalmic (eye) BID 0RF calcium citrate-vitamin D2 250-100 mg-unit tablet 1 tab PO DAILY 0RF polyethylene glycol 3350 [Miralax] 17 gram/dose powder 17 g PO DAILY 0RF cod liver oil Capsule 1 cap PO DAILY 0RF biotin 5,000 mcg tablet, sublingual See Rx Instructions sublingual ONCE 0RF Rx Instructions: sublingual once; omeprazole 20 mg capsule,delayed release(DR/EC) 20 mg PO DAILY Qty: 90 3RF Rx Instructions: Take on empty stomach losartan 100 mg tablet 50 mg PO DAILY Qty: 90 0RF furosemide 20 mg Tablet 30 mg PO DAILY 0RF potassium chloride 10 mEq Tablet Extended Release 10 meq PO DAILY 0RF mometasone 50 mcg/actuation Moncure,Non-Aerosol 2 spray INTRANASAL DAILY 0RF Rx Instructions: administer into each nostril Ocuvite Tablet 1 tab PO DAILY 0RF Vitamin D3 25 mcg (1,000 unit) Tablet 25 mcg PO DAILY 0RF Stress B-Complex 500 mg-400 mcg- 24 mg-3 mg Tablet 1 tab PO DAILY 0RF Rx Instructions: daily Discharge Orders: Discharge Order (Routine); Ordered 05/26/21 Ordered By: Lucrecia Mayes Other Ambulatory Orders: Physical Therapy Eval and Treat Outpatient (Order) Timeframe: 3 Weeks Facility: [facility] - Location: Physical Therapy Ordered By: Lucrecia Mayes Referrals: [facility] [Other] (The [facility] will be calling you with your appointment date/time to start your outpatient therapy. If you do not hear from them by noon the day after discharge, please call them at [phone] ext. [phone]. If you have any issues please contact case management at [phone] ext [phone].) Lucrecia Mayes MD [Physician] - 06/08/21 1:45 pm Discharge Diet: Advance as tolerated, Usual diet and As Directed Discharge Activity: Increase activity as tolerated, Limit activity as instructed, Use walker/crutches as instructed and As per PT/OT instructions Patient Instructions: Joint Replacement Surgery (GEN), Opioid Safety Activity Restrictions/Additional Instructions: Ice and elevation to right lower extremity. Ambulate as tolerated. Gait training, strengthening, and range of motion for physical therapy. Elevate, elevate, elevate. Discharge Attestations Time Spent in Discharge Care*: greater than 30 min Specific Discharge Activities: educating patient, documenting/other paperwork and evaluating patient/reviewing data Quality Metrics Clinical Quality Measures [ No reported AMI, CVA or VTE this stay] Coding Level of Care Code Acute [facility] note Diagnoses Status post total right knee replacement not using cement Z96.651 Primary osteoarthritis of right knee M17.11 Valgus deformity, not elsewhere classified, right knee M21.061
== END 2021-05-26 17:26 | disposition home health service (06) ==
LOC: MEDSURG 05-25 10:38
PROVIDERS: Admitting Provider Specialist; PCP Registered Nurse; Visit Provider Specialist
PROC: (CPT 27447; principal; 2021-05-24 13:45)
DX: M17.11 Unilateral primary osteoarthritis, right knee (principal); M21.061 Valgus deformity, not elsewhere classified, right knee; I10 Essential (primary) hypertension
CPT/HCPCS: 27447; 36415; 51702; 64447; 73562; 76942; 80048; 80053; 81003; 85025; 96365; 97110; 97116; 97161; 97165; 97530; C1776; C9290; G0378; J2175; J2405; J2704; J2795; J3010; J3370; J3490; J7030; J7050

== ENCOUNTER 2021-06-07 10:28 | Outpatient (RCR) | payer MEDICARE, SELFPAY | END 2021-06-27 23:59 | disposition home or self-care (01) | LOC: SPT 10:28 | PROVIDERS: PCP Registered Nurse; Referring Provider Specialist; Visit Provider Specialist | DX: M17.12 Unilateral primary osteoarthritis, left knee (principal); M17.11 Unilateral primary osteoarthritis, right knee; Z96.651 Presence of right artificial knee joint | CPT/HCPCS: 97110; 97161 ==

== ENCOUNTER → 2021-06-08 13:53 | Outpatient (BNVA) | payer MEDICARE, SELFPAY | PROVIDERS: PCP Registered Nurse; Visit Provider Specialist | DX: Z96.651 Presence of right artificial knee joint (principal) | CPT/HCPCS: 73560; 73565 ==

== ENCOUNTER 2021-06-13 11:25 | Outpatient (CLI) | payer MEDICARE, SELFPAY ==
--- NOTE | 2021-06-13 11:00 | USCV_ITS ---
Elise Salomon Age: 76 Gender: F : 1945 Exam Date: 06/13/2021 11:53 Ordering Phys: Lucrecia Mayes MD Technologist: Exam Location: [facility] [place] Indication: POST KNEE SURG HISTORY: Status post knee replacement. PROCEDURES: Venous duplex imaging was performed in only the right lower extremity. The following venous structures were evaluated: common femoral vein, profunda vein, proximal portion of the greater saphenous vein, superficial femoral vein, and the popliteal vein. FINDINGS: Normal 2-D Doppler and augmentation and compressibility throughout the lower extremity venous structures. Additional imaging through the proximal calf veins also reveals no thrombus. Limited evaluation of the greater saphenous vein is patent with no thrombus. CONCLUSIONS No DVT right lower extremity. Dr. Renetta Burris DO (Electronically Signed) Final Date: 13 June 2021 12:44 S
== END 2021-06-13 11:26 | disposition home or self-care (01) ==
LOC: RAD 11:29
PROVIDERS: PCP Registered Nurse; Visit Provider Specialist
DX: Z96.651 Presence of right artificial knee joint (principal)
CPT/HCPCS: 93971

== ENCOUNTER → 2021-06-20 15:17 | Outpatient (BNVA) | payer MEDICARE, SELFPAY | PROVIDERS: PCP Registered Nurse; Visit Provider Specialist | DX: Z96.651 Presence of right artificial knee joint (principal) | CPT/HCPCS: 73560; 73565 ==

== ENCOUNTER 2021-06-28 06:00 | Outpatient (RCR) | payer MEDICARE, SELFPAY | END 2021-07-28 23:59 | disposition home or self-care (01) | LOC: SPT 06:00 | PROVIDERS: PCP Registered Nurse; Referring Provider Specialist; Visit Provider Specialist | DX: Z47.1 Aftercare following joint replacement surgery (principal); Z96.651 Presence of right artificial knee joint | CPT/HCPCS: 97110 ==

== ENCOUNTER → 2021-07-06 10:02 | Outpatient (BNVA) | payer MEDICARE, SELFPAY | PROVIDERS: PCP Registered Nurse; Visit Provider Specialist | DX: Z96.651 Presence of right artificial knee joint (principal) | CPT/HCPCS: 73560; 73565 ==

== ENCOUNTER 2021-07-29 06:00 | Outpatient (RCR) | payer MEDICARE, SELFPAY | END 2021-08-27 23:59 | disposition home or self-care (01) | LOC: SPT 06:00 | PROVIDERS: PCP Registered Nurse; Referring Provider Specialist; Visit Provider Specialist | DX: M17.12 Unilateral primary osteoarthritis, left knee (principal); M17.11 Unilateral primary osteoarthritis, right knee; Z96.651 Presence of right artificial knee joint | CPT/HCPCS: 97110 ==

== ENCOUNTER → 2021-09-07 15:38 | Outpatient (BNVA) | payer MEDICARE, SELFPAY | PROVIDERS: PCP Registered Nurse; Visit Provider Podiatrist Foot & Ankle Surgery | DX: L03.032 Cellulitis of left toe (principal) | CPT/HCPCS: 11750 ==

== ENCOUNTER → 2021-09-23 12:46 | Outpatient (BNVA) | payer MEDICARE, SELFPAY | PROVIDERS: PCP Registered Nurse; Visit Provider Podiatrist Foot & Ankle Surgery | DX: L60.0 Ingrowing nail (principal) | CPT/HCPCS: 99213 ==

== ENCOUNTER → 2021-11-09 13:58 | Outpatient (BNVA) | payer MEDICARE, SELFPAY | PROVIDERS: PCP Registered Nurse; Visit Provider Specialist | DX: M17.11 Unilateral primary osteoarthritis, right knee (principal); Z96.651 Presence of right artificial knee joint | CPT/HCPCS: 73560; 73565; 99213 ==

== ENCOUNTER → 2022-02-06 13:43 | Outpatient (BNVA) | payer MEDICARE, SELFPAY | PROVIDERS: PCP Registered Nurse; Visit Provider Podiatrist Foot & Ankle Surgery | DX: B07.0 Plantar wart (principal); L60.3 Nail dystrophy | CPT/HCPCS: 17110 ==

== ENCOUNTER → 2022-03-01 11:23 | Outpatient (BNVA) | payer MEDICARE, SELFPAY | PROVIDERS: PCP Registered Nurse; Visit Provider Podiatrist Foot & Ankle Surgery | DX: L60.3 Nail dystrophy (principal); B07.0 Plantar wart; M76.829 Posterior tibial tendinitis, unspecified leg | CPT/HCPCS: 99213 ==

== ENCOUNTER → 2022-03-21 13:48 | Outpatient (BNVA) | payer MEDICARE, SELFPAY | PROVIDERS: PCP Registered Nurse; Visit Provider Registered Nurse | DX: Z12.31 Encounter for screening mammogram for malignant neoplasm of breast (principal); E04.9 Nontoxic goiter, unspecified; E78.5 Hyperlipidemia, unspecified; R42 Dizziness and giddiness; E55.9 Vitamin D deficiency, unspecified; I10 Essential (primary) hypertension | CPT/HCPCS: 80053; 80061; 82306; 82607; 84443; 85025 ==

== ENCOUNTER → 2022-03-30 09:56 | Outpatient (BNVA) | payer MEDICARE, SELFPAY | PROVIDERS: PCP Registered Nurse; Visit Provider Registered Nurse | DX: Z12.31 Encounter for screening mammogram for malignant neoplasm of breast (principal); E04.9 Nontoxic goiter, unspecified; E78.5 Hyperlipidemia, unspecified; R42 Dizziness and giddiness; E55.9 Vitamin D deficiency, unspecified; R53.82 Chronic fatigue, unspecified; Z78.0 Asymptomatic menopausal state; I10 Essential (primary) hypertension | CPT/HCPCS: 85025 ==

== ENCOUNTER 2022-04-07 06:46 | Outpatient (CLI) | payer MEDICARE, SELFPAY ==
--- NOTE | 2022-04-07 07:15 | USCV_ITS ---
Elise Salomon Age: 76 Gender: F : 1945 Exam Date: 04/07/2022 07:04 Ordering Phys: Taylor Phillips RECRUITING ASSISTANT Technologist: ANGI [place] [facility] [place]ication: DIZZINESS [id number] Risk Factors: Previous Vascular Surgery: Right Brachial BP: / Left Brachial BP: / Right Left Velocity (cm/s) Spectral Plaque Velocity (cm/s) Spectral Plaque Syst/Diast Broadening Syst/Diast Broadening 65.90/ 11.10 Prox CCA 126.40/ 20.10 66.60/ 13.90 Mid CCA 71.00 / 17.10 97.40/ 11.10 Distal CCA 56.70 / 12.40 44.70/ 10.50 Prox ICA 55.80 / 13.50 74.50/ 21.60 Mid ICA 76.90 / 19.70 90.80/ 21.10 Distal ICA 99.20 / 23.20 100.80 ECA 100.40 0.93 ICA/CCA 0.79 Antegrade Vertebral Antegrade 51.30/ 11.10 cm/s 43.50/ 10.10 cm/s Tri Subclavian Tri 121.9 148.3 0 0 FINDINGS Comparison: none available. No significant elevation of systolic or diastolic velocities. Waveforms are normal. Mild scattered plaque throughout the carotid arteries. Antegrade vertebral arteries. CONCLUSIONS Bilateral ICA stenosis less than 50%. Mild carotid atherosclerosis. Dr. Renetta Burris DO (Electronically Signed) Final Date: 07 April 2022 07:21 S
== END 2022-04-07 06:47 | disposition home or self-care (01) ==
LOC: RAD 06:48
PROVIDERS: PCP Registered Nurse; Visit Provider Registered Nurse
DX: I65.23 Occlusion and stenosis of bilateral carotid arteries (principal); R42 Dizziness and giddiness
CPT/HCPCS: 93880

== ENCOUNTER 2022-04-14 14:41 | Outpatient (CLI) | payer MEDICARE, SELFPAY ==
--- NOTE | 2022-04-14 14:56 | MM_ITS ---
WS: [id number] BILATERAL 3D TOMOSYNTHESIS DIGITAL SCREENING MAMMOGRAPHY WITH CAD CLINICAL INFORMATION: Z12.31 - Encounter for screening mammogram for malignant ... HISTORY: Screening mammogram. No current complaints. COMPARISON: July 26, 2015 TECHNIQUE: Bilateral CC and MLO views. FINDINGS: Scattered fibroglandular densities bilaterally. No suspicious focal mass, asymmetry, calcifications, or architectural distortion. No evidence of malignancy. A few incidental punctate calcifications. Vas cular calcifications. MM/[place] [id number] IMPRESSION: BI-RADS: 2-Benign FOLLOW UP: 1 Year Follow-up Recommend return to annual screening mammography.
== END 2022-04-14 14:42 | disposition home or self-care (01) ==
LOC: RAD 14:43
PROVIDERS: PCP Registered Nurse; Visit Provider Registered Nurse
DX: Z12.31 Encounter for screening mammogram for malignant neoplasm of breast (principal)
CPT/HCPCS: 77063; 77067

== ENCOUNTER → 2022-05-05 15:00 | Outpatient (BNVA) | payer MEDICARE, SELFPAY | PROVIDERS: PCP Registered Nurse; Visit Provider Registered Nurse | DX: K59.00 Constipation, unspecified (principal); J02.9 Acute pharyngitis, unspecified | CPT/HCPCS: 87880 ==

== ENCOUNTER → 2022-05-16 08:18 | Outpatient (BNVA) | payer MEDICARE, SELFPAY | PROVIDERS: PCP Registered Nurse; Visit Provider Podiatrist Foot & Ankle Surgery | DX: B07.8 Other viral warts (principal); L60.3 Nail dystrophy; B07.0 Plantar wart; M76.829 Posterior tibial tendinitis, unspecified leg | CPT/HCPCS: 99214 ==

== ENCOUNTER 2022-06-21 16:17 | Outpatient (CLI) | payer MEDICARE, SELFPAY | END 2022-06-21 16:18 | disposition home or self-care (01) | LOC: SPT 16:18 | PROVIDERS: PCP Registered Nurse; Visit Provider Podiatrist Foot & Ankle Surgery | DX: Z46.89 Encounter for fitting and adjustment of other specified devices (principal); M76.829 Posterior tibial tendinitis, unspecified leg | CPT/HCPCS: 97760; L3030 ==

== ENCOUNTER → 2022-06-29 13:49 | Outpatient (BNVA) | payer MEDICARE, SELFPAY | PROVIDERS: PCP Registered Nurse; Visit Provider Podiatrist Foot & Ankle Surgery | DX: B07.0 Plantar wart (principal); B07.8 Other viral warts; L60.8 Other nail disorders; L60.3 Nail dystrophy; M76.821 Posterior tibial tendinitis, right leg; M76.822 Posterior tibial tendinitis, left leg | CPT/HCPCS: 17110; 99213 ==

== ENCOUNTER → 2022-09-05 14:28 | Outpatient (BNVA) | payer MEDICARE, SELFPAY | PROVIDERS: PCP Registered Nurse; Visit Provider Podiatrist Foot & Ankle Surgery | DX: L60.8 Other nail disorders (principal); B07.8 Other viral warts; B07.0 Plantar wart; M76.821 Posterior tibial tendinitis, right leg; M76.822 Posterior tibial tendinitis, left leg | CPT/HCPCS: 99213 ==

== ENCOUNTER → 2023-01-09 14:44 | Outpatient (BNVA) | payer MEDICARE, SELFPAY | PROVIDERS: PCP Registered Nurse; Visit Provider Registered Nurse | DX: R05.9 Cough, unspecified (principal) | CPT/HCPCS: 87400; 87880 ==

== ENCOUNTER → 2023-05-07 10:50 | Outpatient (BNVA) | payer MEDICARE, SELFPAY | PROVIDERS: PCP Registered Nurse; Visit Provider Registered Nurse | DX: N39.0 Urinary tract infection, site not specified (principal) | CPT/HCPCS: 81000; 87086 ==

== ENCOUNTER → 2024-02-15 09:20 | Outpatient (BNVA) | payer MEDICARE, SELFPAY | PROVIDERS: PCP Registered Nurse; Visit Provider Registered Nurse | DX: I10 Essential (primary) hypertension (principal); E04.9 Nontoxic goiter, unspecified; E53.8 Deficiency of other specified B group vitamins; N30.80 Other cystitis without hematuria | CPT/HCPCS: 80053; 81000; 82607; 84439; 84443; 85025; 86376; 87086 ==

== ENCOUNTER → 2024-05-22 10:33 | Outpatient (BNVA) | payer MEDICARE, SELFPAY | PROVIDERS: PCP Registered Nurse; Visit Provider Registered Nurse | DX: I10 Essential (primary) hypertension (principal); R23.2 Flushing | CPT/HCPCS: 84443; 84481 ==